=== PATIENT | male | born 1965 | race Two or more races ===

== ENCOUNTER 2022-01-11 10:08 | Inpatient (IN) | payer MEDICAID ==
[~2022-01-11] VITALS: Ht 162.6 cm; Wt 80.2 kg
[2022-01-11] VITALS (30 sets, daily range): BP systolic 144–196; BP diastolic 68–88
[2022-01-11] MEDS: InsuLIN REG 1unit/0.01ml Soln (100units/ml) SC SCH ×2 (01:15→17:00)
[~2022-01-11 10:08] MED LIST: AMLO-496 PO; ASPI-543 PO; ATOR20TA50 PO; CARV6.25 PO; CLON0.1T PO; ERGO1CAP23 PO; GABA300C10 PO; GLIP5TAB12 PO; POM EACHEYE; SILD50TA42 PO; TAMS0.4C36 PO
[2022-01-11 11:41] LABS: Basophils # (auto) 0 10 ^3/uL (0-0.2); Basophils % (auto) 0.5 % (0.0-2.0); Eosinophils # (auto) 0 10 ^3/uL (0-0.8); Eosinophils % (auto) 0.5 % (0.0-7.0); Hematocrit 33.2 % (41.0-53.0); Hemoglobin 10.6 g/dL (13.5-17.5); Lymphocytes % (auto) 18.5 % (10.0-50.0); Mean Corpuscular Hemoglobin 31.6 pg (28.0-32.0); Mean Corpuscular Volume 98.5 fL (80.0-100.0); Monocytes # (auto) 0.6 10 ^3/uL (0-1.3); Monocytes % (auto) 9.8 % (0.0-12.0); Neutrophils % (auto) 70.7 % (37.0-80.0); Nucleated Red Blood Cells % 0.1 %; Red Blood Cells 3.37 10^6/uL (4.5-5.90); Red Cell Distribution Width 14.2 % (11.8-14.3); White Blood Cell 5.6 10^3/uL (4.4-10.8)
[2022-01-11 11:45] LABS: BUN/Creatinine Ratio 25.4; Calcium 8.1 mg/dL (8.5-10.1); Potassium 5.1 mmol/L (3.5-5.1)
[2022-01-11] MEDS ORDERED: ONDANSETRON HCL 4 MG/2 ML VIAL IV ONE (11:45)
[2022-01-11] MEDS ORDERED: FLEET ENEMA(ADULT) 135 ML PR ONE (11:45)
[2022-01-11] MEDS ORDERED: MORPHINE SULFATE 4 MG/ML SYR/VIAL IV ONE (11:45)
[2022-01-11] MEDS ORDERED: FUROSEMIDE 40 MG/4 ML VIAL IV ONE (11:45)
[2022-01-11 11:48] LABS: Bilirubin, Total 0.3 mg/dL (0.2-1.0); Total Protein 6.5 g/dL (6.4-8.2)
[2022-01-11 11:57] LABS: INR 1.02 (0.9-1.15); Partial Thromboplastin Time 27.1 sec (23.6-33.0)
[2022-01-11] MEDS ORDERED: NITROGLYCERIN 0.4 MG SL TAB SL PRN (12:30)
[2022-01-11] MEDS ORDERED: traMADol HCL 50 MG TAB PO PRN (12:30)
[2022-01-11] MEDS ORDERED: PANTOPRAZOLE 40 MG TAB PO ONE (12:30)
[2022-01-11] MEDS ORDERED: DEXTROSE (50%) 50ML SYRG IV PRN (12:30)
[2022-01-11] MEDS ORDERED: MORPHINE SULFATE INJECTION 2 MG/ML SYRG IV PRN ×2 (12:30)
[2022-01-11] MEDS ORDERED: TEMAZEPAM 15 MG CAP PO PRN (12:30)
[2022-01-11] MEDS ORDERED: LACTULOSE 20Gm/30ML SOLN PO PRN (12:30)
[2022-01-11] MEDS ORDERED: PROMETHAZINE HCL 25 MG/ML 1ML IV PRN (12:30)
[2022-01-11] MEDS: SODIUM CHLOR 0.9% PF (SALINE LOCK) 10ML VIAL/SYR IV SCH ×2 (14:02→23:00)
[2022-01-11] MEDS ORDERED: ISOSORBIDE MONONITRATE ER 60 MG TAB PO ONE (14:45)
[2022-01-11] MEDS ORDERED: CARVEDILOL 3.125 MG TAB PO SCH ×2 (14:45→22:00)
[2022-01-11] MEDS: ACCU-CHEK COMFORT CURVE STRIP VI SCH (17:00)
[2022-01-11] MEDS ORDERED: ROCURONIUM 10MG/ML 10ML VIAL IV ONE ×2 (17:24→17:56)
[2022-01-11] MEDS ORDERED: MIDAZOLAM DRIP 50 mg/50mL 50 ML IV ONE (17:34)
[2022-01-11] MEDS ORDERED: fentaNYL Drip 2500mCg/250mlNS 250 ML IV ONE (17:44)
[2022-01-11] MEDS: FUROSEMIDE 100 MG/10ML VIAL IV SCH (18:00)
[2022-01-11] MEDS ORDERED: hydrALAZINE HCL 25 MG TAB PO SCH (18:00)
[2022-01-11] MEDS: TAMSULOSIN HYDROCHLORIDE 0.4 MG CAP PO SCH (18:00)
[2022-01-11 18:16] LABS: Basophils # (auto) 0.1 10 ^3/uL (0-0.2); Basophils % (auto) 0.6 % (0.0-2.0); Eosinophils # (auto) 0.1 10 ^3/uL (0-0.8); Eosinophils % (auto) 0.6 % (0.0-7.0); Hematocrit 33.3 % (41.0-53.0); Hemoglobin 10.8 g/dL (13.5-17.5); Lymphocytes # (auto) 1.3 10 ^3/uL (0.4-5.4); Lymphocytes % (auto) 14.9 % (10.0-50.0); Mean Corpuscular Hemoglobin 31.9 pg (28.0-32.0); Mean Corpuscular Hgb Conc. 32.5 g/dL (32.0-36.0); Mean Corpuscular Volume 98.1 fL (80.0-100.0); Monocytes # (auto) 0.7 10 ^3/uL (0-1.3); Monocytes % (auto) 7.8 % (0.0-12.0); Neutrophils # (auto) 6.4 10 ^3/uL (1.6-8.6); Neutrophils % (auto) 76.1 % (37.0-80.0); Nucleated Red Blood Cells % 0.1 %; Red Blood Cells 3.39 10^6/uL (4.5-5.90); Red Cell Distribution Width 13.9 % (11.8-14.3); White Blood Cell 8.4 10^3/uL (4.4-10.8)
[2022-01-11] MEDS ORDERED: SODIUM BICARBONATE 8.4% INJ 50ML SYRINGE IV ONE (18:22)
[2022-01-11] MEDS ORDERED: EPINEPHrine HCL 1 MG/10 ML SYRG IV ONE (18:22)
[2022-01-11 18:36] LABS: Albumin 2.8 g/dL (3.4-5.0); Calcium 7.9 mg/dL (8.5-10.1); Potassium 4.4 mmol/L (3.5-5.1)
[2022-01-11 18:38] LABS: BUN/Creatinine Ratio 26.1
[2022-01-11 18:49] LABS: Bilirubin, Total 0.3 mg/dL (0.2-1.0); Total Protein 6.2 g/dL (6.4-8.2)
[2022-01-11] MEDS ORDERED: VANCOMYCIN 1GM/250ML 250 ML IV ONE (19:15)
[2022-01-11] MEDS: CARVEDILOL 12.5 MG TAB PO SCH (22:00)
[2022-01-11] MEDS: GABAPENTIN 300 MG CAP PO SCH (22:00)
[2022-01-11] MEDS: ATORVASTATIN 20 MG TAB PO SCH (22:00)
[2022-01-12] VITALS (86 sets, daily range): BP systolic 106–154; BP diastolic 59–77
[2022-01-12] MEDS: ACCU-CHEK COMFORT CURVE STRIP VI SCH ×5 (01:15→22:00)
[2022-01-12 03:52] LABS: Basophils # (auto) 0 10 ^3/uL (0-0.2); Basophils % (auto) 0.5 % (0.0-2.0); Eosinophils # (auto) 0 10 ^3/uL (0-0.8); Eosinophils % (auto) 0.6 % (0.0-7.0); Hematocrit 28.7 % (41.0-53.0); Hemoglobin 9.9 g/dL (13.5-17.5); Lymphocytes # (auto) 0.8 10 ^3/uL (0.4-5.4); Lymphocytes % (auto) 20.3 % (10.0-50.0); Mean Corpuscular Hemoglobin 33.2 pg (28.0-32.0); Mean Corpuscular Hgb Conc. 34.6 g/dL (32.0-36.0); Mean Corpuscular Volume 95.9 fL (80.0-100.0); Monocytes # (auto) 0.4 10 ^3/uL (0-1.3); Monocytes % (auto) 11.2 % (0.0-12.0); Neutrophils # (auto) 2.5 10 ^3/uL (1.6-8.6); Neutrophils % (auto) 67.4 % (37.0-80.0); Nucleated Red Blood Cells % 0.1 %; Red Blood Cells 2.99 10^6/uL (4.5-5.90); Red Cell Distribution Width 13.8 % (11.8-14.3); White Blood Cell 3.7 10^3/uL (4.4-10.8)
[2022-01-12 04:11] LABS: Albumin 2.4 g/dL (3.4-5.0); Potassium 3.7 mmol/L (3.5-5.1)
[2022-01-12 04:13] LABS: BUN/Creatinine Ratio 28.1
[2022-01-12 04:19] LABS: Bilirubin, Total 0.4 mg/dL (0.2-1.0); Total Protein 5.3 g/dL (6.4-8.2)
[2022-01-12] MEDS: PIPERACILLIN-TAZOB 3.375GM 100 ML IV SCH ×4 (04:48→21:00)
[2022-01-12] MEDS: SODIUM CHLOR 0.9% PF (SALINE LOCK) 10ML VIAL/SYR IV SCH ×3 (06:00→22:00)
[2022-01-12] MEDS: hydrALAZINE HCL 25 MG TAB PO SCH ×3 (06:00→12:00)
[2022-01-12] MEDS: FUROSEMIDE 100 MG/10ML VIAL IV SCH (06:00)
[2022-01-12] MEDS: InsuLIN REG 1unit/0.01ml Soln (100units/ml) SC SCH ×4 (07:12→22:00)
[2022-01-12] MEDS: MIDAZOLAM DRIP 50 mg/50mL 50 ML IV SCH ×4 (07:19→19:00)
[2022-01-12] MEDS ORDERED: cefTRIAXone 1GM/50ML D5W 50 ML IV SCH (09:00)
[2022-01-12] MEDS: ASPirin-EC 81 mg tab PO SCH (09:34)
[2022-01-12] MEDS: CARVEDILOL 12.5 MG TAB PO SCH (09:34)
[2022-01-12] MEDS: glipiZIDE 5 MG TAB PO SCH (09:35)
[2022-01-12] MEDS: PANTOPRAZOLE 40 MG/10 ML VIAL INJ IV SCH (09:46)
[2022-01-12] MEDS: GABAPENTIN 300 MG CAP PO SCH ×2 (09:46→22:00)
[2022-01-12] MEDS: NITROGLYCERIN 0.2MG/HR TOPICAL PATCH TD SCH (09:47)
[2022-01-12] MEDS ORDERED: PATIENTS OWN MEDICATION EACHEYE SCH (10:00)
[2022-01-12] MEDS: NOREPINEPHRINE 8 MG/250ML KIT 250 ML IV SCH (10:00)
[2022-01-12] MEDS ORDERED: ENOXAPARIN SOD 40 MG/0.4 ML SYRINGE SC SCH (10:00)
[2022-01-12] MEDS ORDERED: PANTOPRAZOLE 40 MG TAB PO SCH (10:00)
[2022-01-12] MEDS ORDERED: amLODIPine BESYLATE 5 MG TAB PO SCH (10:00)
[2022-01-12] MEDS: fentaNYL Drip 2500mCg/250mlNS 250 ML IV SCH ×2 (11:23→19:30)
[2022-01-12] MEDS: PROPOFOL 100 ML IV SCH ×2 (11:47→19:30)
[2022-01-12] MEDS: SOD CHL 0.45% 1,000 ML IV SCH (11:56)
[2022-01-12] MEDS ORDERED: TPN PER PHARMACY 0 ML IV SCH (14:00)
[2022-01-12 14:14] LABS: Alcohol, Urine < 3.0 mg/dL (0-10); Barbiturate Scree,Urine NEGATIVE (NEGATIVE); Benzodiazephine Screen, Urine POSITIVE (NEGATIVE); Cocaine Screen, Urine NEGATIVE (NEGATIVE); Opiate Scree,Urine NEGATIVE (NEGATIVE); Phencyclidine Screen, Urine NEGATIVE (NEGATIVE)
[2022-01-12] MEDS: DOPamine 1600MCG/ML D5W 250 ML IV SCH (14:30)
[2022-01-12 14:45] LABS: Protein, Urine 197.3 mg/dL (0.0-11.9)
[2022-01-12 14:47] LABS: Magnesium 3.6 mg/dL (1.6-2.6)
[2022-01-12 15:05] LABS: Amphetamine Screen, Urine NEGATIVE (NEGATIVE); Cannabinoid Screen, Urine NEGATIVE (NEGATIVE)
[2022-01-12 15:15] LABS: Urine Bacteria FEW /hpf (None Seen); Urine Blood TRACE /uL (Negative); Urine Mucus FEW (None Seen); Urine Specific Gravity 1.009 (1.001-1.035); Urine WBC 1 /hpf (0 - 3)
[2022-01-12] MEDS ORDERED: VANCOMYCIN PER PHARMACY 0 MG IV SCH (15:30)
[2022-01-12] MEDS ORDERED: VANCOMYCIN 1GM/250ML 250 ML IV ONE (17:00)
[2022-01-12] MEDS: TAMSULOSIN HYDROCHLORIDE 0.4 MG CAP PO SCH (17:42)
[2022-01-12] MEDS ORDERED: AMINO ACID INFUSION IN D10W 1,000 ML IV NR (20:00)
[2022-01-12] MEDS: ATORVASTATIN 20 MG TAB PO SCH (22:00)
[2022-01-12] MEDS: ENOXAPARIN SOD 80 MG/0.8ML SYRINGE SC SCH (22:00)
[2022-01-13] VITALS (105 sets, daily range): BP systolic 90–133; BP diastolic 51–67
[2022-01-13] MEDS ORDERED: DEXTROSE (50%) 50ML SYRG IV SCH
[2022-01-13] MEDS: PIPERACILLIN-TAZOB 3.375GM 100 ML IV SCH ×3 (04:00→20:13)
[2022-01-13 04:11] LABS: Albumin 1.9 g/dL (3.4-5.0); BUN/Creatinine Ratio 22.4; Calcium 7.4 mg/dL (8.5-10.1); Potassium 3.4 mmol/L (3.5-5.1)
[2022-01-13 04:24] LABS: Bilirubin, Total 0.6 mg/dL (0.2-1.0); Phosphorus 4.1 mg/dL (2.5-4.90); Total Protein 4.6 g/dL (6.4-8.2)
[2022-01-13] MEDS: SODIUM CHLOR 0.9% PF (SALINE LOCK) 10ML VIAL/SYR IV SCH ×3 (06:00→21:20)
[2022-01-13] MEDS: InsuLIN REG 1unit/0.01ml Soln (100units/ml) SC SCH ×4 (06:00→18:00)
[2022-01-13] MEDS: ACCU-CHEK COMFORT CURVE STRIP VI SCH ×4 (06:00→18:06)
[2022-01-13] MEDS: MIDAZOLAM DRIP 50 mg/50mL 50 ML IV SCH ×2 (07:50→21:17)
[2022-01-13] MEDS: DOPamine 1600MCG/ML D5W 250 ML IV SCH (07:54)
[2022-01-13 08:49] LABS: Basophils # (auto) 0 10 ^3/uL (0-0.2); Basophils % (auto) 0.5 % (0.0-2.0); Eosinophils # (auto) 0.1 10 ^3/uL (0-0.8); Eosinophils % (auto) 2.4 % (0.0-7.0); Hematocrit 28.3 % (41.0-53.0); Hemoglobin 9.3 g/dL (13.5-17.5); Lymphocytes # (auto) 0.7 10 ^3/uL (0.4-5.4); Lymphocytes % (auto) 15.8 % (10.0-50.0); Mean Corpuscular Hemoglobin 31.7 pg (28.0-32.0); Mean Corpuscular Volume 96.1 fL (80.0-100.0); Monocytes # (auto) 0.5 10 ^3/uL (0-1.3); Monocytes % (auto) 11.7 % (0.0-12.0); Neutrophils # (auto) 3.2 10 ^3/uL (1.6-8.6); Neutrophils % (auto) 69.6 % (37.0-80.0); Nucleated Red Blood Cells % 0.1 %; Red Blood Cells 2.95 10^6/uL (4.5-5.90); Red Cell Distribution Width 14.3 % (11.8-14.3); White Blood Cell 4.6 10^3/uL (4.4-10.8)
[2022-01-13] MEDS: glipiZIDE 5 MG TAB PO SCH (10:00)
[2022-01-13] MEDS: NITROGLYCERIN 0.2MG/HR TOPICAL PATCH TD SCH (10:00)
[2022-01-13] MEDS: NOREPINEPHRINE 8 MG/250ML KIT 250 ML IV SCH (10:00)
[2022-01-13] MEDS: GABAPENTIN 300 MG CAP PO SCH ×2 (10:00→21:20)
[2022-01-13] MEDS: ASPirin-EC 81 mg tab PO SCH (10:00)
[2022-01-13] MEDS: PANTOPRAZOLE 40 MG/10 ML VIAL INJ IV SCH (10:38)
[2022-01-13] MEDS: ENOXAPARIN SOD 80 MG/0.8ML SYRINGE SC SCH ×2 (10:39→21:21)
[2022-01-13] MEDS: SOD CHL 0.45% 1,000 ML IV SCH ×3 (11:00→17:15)
[2022-01-13] MEDS: POTASSIUM CHL 10MEQ/50ML 50 ML IV SCH ×2 (12:30→13:30)
[2022-01-13] MEDS ORDERED: VANCOMYCIN 1GM/250ML 250 ML IV SCH (17:00)
[2022-01-13] MEDS: TAMSULOSIN HYDROCHLORIDE 0.4 MG CAP PO SCH (17:54)
[2022-01-13] MEDS ORDERED: TPN PER PHARMACY IV NR ×5 (20:00)
[2022-01-13] MEDS: ATORVASTATIN 20 MG TAB PO SCH (21:19)
[2022-01-14] VITALS (107 sets, daily range): BP systolic 106–170; BP diastolic 51–92
[2022-01-14] MEDS: InsuLIN REG 1unit/0.01ml Soln (100units/ml) SC SCH ×5 (00:30→23:34)
[2022-01-14 03:42] LABS: Basophils # (auto) 0 10 ^3/uL (0-0.2); Basophils % (auto) 0.5 % (0.0-2.0); Eosinophils # (auto) 0.2 10 ^3/uL (0-0.8); Eosinophils % (auto) 2.8 % (0.0-7.0); Hematocrit 27.7 % (41.0-53.0); Hemoglobin 9.4 g/dL (13.5-17.5); Lymphocytes # (auto) 1.2 10 ^3/uL (0.4-5.4); Lymphocytes % (auto) 17.6 % (10.0-50.0); Mean Corpuscular Hemoglobin 32.5 pg (28.0-32.0); Mean Corpuscular Volume 95.7 fL (80.0-100.0); Monocytes # (auto) 0.9 10 ^3/uL (0-1.3); Monocytes % (auto) 12.9 % (0.0-12.0); Neutrophils # (auto) 4.6 10 ^3/uL (1.6-8.6); Neutrophils % (auto) 66.2 % (37.0-80.0); Nucleated Red Blood Cells % 0.1 %; White Blood Cell 6.9 10^3/uL (4.4-10.8)
[2022-01-14 03:59] LABS: Albumin 1.6 g/dL (3.4-5.0); Calcium 7.3 mg/dL (8.5-10.1); Magnesium 2.7 mg/dL (1.6-2.6)
[2022-01-14 04:01] LABS: BUN/Creatinine Ratio 17.7
[2022-01-14 04:03] LABS: Bilirubin, Total 0.5 mg/dL (0.2-1.0); Phosphorus 5.4 mg/dL (2.5-4.90); Total Protein 4.7 g/dL (6.4-8.2)
[2022-01-14] MEDS: fentaNYL Drip 2500mCg/250mlNS 250 ML IV SCH ×2 (04:34→19:30)
[2022-01-14] MEDS: PIPERACILLIN-TAZOB 3.375GM 100 ML IV SCH ×3 (06:15→21:18)
[2022-01-14] MEDS: ACCU-CHEK COMFORT CURVE STRIP VI SCH ×5 (06:16→23:32)
[2022-01-14] MEDS: SODIUM CHLOR 0.9% PF (SALINE LOCK) 10ML VIAL/SYR IV SCH ×3 (06:16→21:17)
[2022-01-14] MEDS: SOD CHL 0.45% 1,000 ML IV SCH (06:16)
[2022-01-14] MEDS: DOPamine 1600MCG/ML D5W 250 ML IV SCH (09:06)
[2022-01-14] MEDS: PROPOFOL 100 ML IV SCH (09:06)
[2022-01-14] MEDS: ENOXAPARIN SOD 80 MG/0.8ML SYRINGE SC SCH ×2 (09:07→21:17)
[2022-01-14] MEDS: GABAPENTIN 300 MG CAP PO SCH ×2 (09:07→21:17)
[2022-01-14] MEDS: PANTOPRAZOLE 40 MG/10 ML VIAL INJ IV SCH (09:07)
[2022-01-14] MEDS: ASPirin-EC 81 mg tab PO SCH (09:07)
[2022-01-14] MEDS: NOREPINEPHRINE 8 MG/250ML KIT 250 ML IV SCH (09:07)
[2022-01-14] MEDS: glipiZIDE 5 MG TAB PO SCH (09:07)
[2022-01-14] MEDS: NITROGLYCERIN 0.2MG/HR TOPICAL PATCH TD SCH (09:08)
[2022-01-14] MEDS: BUMETANIDE 2.5mg/10ml (0.25 mg/ml) INJ IV SCH ×2 (12:30→18:06)
[2022-01-14] MEDS: TAMSULOSIN HYDROCHLORIDE 0.4 MG CAP PO SCH (18:05)
[2022-01-14] MEDS: TPN PER PHARMACY IV NR ×6 (19:23)
[2022-01-14] MEDS: MIDAZOLAM DRIP 50 mg/50mL 50 ML IV SCH (19:30)
[2022-01-14] MEDS: ATORVASTATIN 20 MG TAB PO SCH (21:16)
[2022-01-15] VITALS (88 sets, daily range): BP systolic 121–186; BP diastolic 48–102
[2022-01-15] MEDS ORDERED: VANCOMYCIN 1GM/250ML 250 ML IV ONE (00:30)
[2022-01-15] MEDS: PIPERACILLIN-TAZOB 3.375GM 100 ML IV SCH ×3 (04:14→20:09)
[2022-01-15 04:47] LABS: Albumin 1.7 g/dL (3.4-5.0); Calcium 7.9 mg/dL (8.5-10.1); Magnesium 2.4 mg/dL (1.6-2.6); Potassium 3.8 mmol/L (3.5-5.1)
[2022-01-15 04:49] LABS: Bilirubin, Total 0.5 mg/dL (0.2-1.0); Phosphorus 4.8 mg/dL (2.5-4.90); Total Protein 5.1 g/dL (6.4-8.2)
[2022-01-15] MEDS: ACCU-CHEK COMFORT CURVE STRIP VI SCH ×3 (05:52→18:06)
[2022-01-15] MEDS: BUMETANIDE 2.5mg/10ml (0.25 mg/ml) INJ IV SCH (05:54)
[2022-01-15] MEDS: SODIUM CHLOR 0.9% PF (SALINE LOCK) 10ML VIAL/SYR IV SCH ×3 (05:54→21:07)
[2022-01-15] MEDS: InsuLIN REG 1unit/0.01ml Soln (100units/ml) SC SCH ×3 (05:54→18:06)
[2022-01-15] MEDS: cloNIDine HCL 0.1 MG TAB PO PRN (08:27)
[2022-01-15] MEDS: NOREPINEPHRINE 8 MG/250ML KIT 250 ML IV SCH (10:00)
[2022-01-15] MEDS: PANTOPRAZOLE 40 MG/10 ML VIAL INJ IV SCH (10:04)
[2022-01-15] MEDS: GABAPENTIN 300 MG CAP PO SCH ×2 (10:05→21:08)
[2022-01-15] MEDS: NITROGLYCERIN 0.2MG/HR TOPICAL PATCH TD SCH (10:05)
[2022-01-15] MEDS: ASPirin-EC 81 mg tab PO SCH (10:05)
[2022-01-15] MEDS: glipiZIDE 5 MG TAB PO SCH (10:06)
[2022-01-15] MEDS: ENOXAPARIN SOD 80 MG/0.8ML SYRINGE SC SCH ×2 (10:06→21:24)
[2022-01-15] MEDS ORDERED: hydrALAZINE HCL 20 MG/ML VL IV ONE (11:15)
[2022-01-15] MEDS: DOPamine 1600MCG/ML D5W 250 ML IV SCH (12:06)
[2022-01-15] MEDS: hydrALAZINE HCL 25 MG TAB PO SCH ×2 (14:00→21:07)
[2022-01-15] MEDS: hydrALAZINE HCL 20 MG/ML VL IV PRN (14:41)
[2022-01-15] MEDS: BUMETANIDE 1mg/4ml VIAL (0.25mg/ml) IV SCH (18:00)
[2022-01-15] MEDS: TAMSULOSIN HYDROCHLORIDE 0.4 MG CAP PO SCH (18:00)
[2022-01-15] MEDS: LABETALOL HCL 5 MG/ML 4ML SYRINGE IV PRN (18:48)
[2022-01-15] MEDS: PROPOFOL 100 ML IV SCH (19:30)
[2022-01-15] MEDS: TPN PER PHARMACY IV NR ×15 (19:43→20:10)
[2022-01-15] MEDS: fentaNYL Drip 2500mCg/250mlNS 250 ML IV SCH (20:10)
[2022-01-15] MEDS: MIDAZOLAM DRIP 50 mg/50mL 50 ML IV SCH (20:10)
[2022-01-15] MEDS: ATORVASTATIN 20 MG TAB PO SCH (21:08)
[2022-01-16] VITALS (69 sets, daily range): BP systolic 121–186; BP diastolic 56–91
[2022-01-16] MEDS: hydrALAZINE HCL 20 MG/ML VL IV PRN ×2 (00:07→08:10)
[2022-01-16] MEDS: ACCU-CHEK COMFORT CURVE STRIP VI SCH ×4 (00:07→17:11)
[2022-01-16] MEDS: InsuLIN REG 1unit/0.01ml Soln (100units/ml) SC SCH ×4 (00:13→17:10)
[2022-01-16] MEDS: PIPERACILLIN-TAZOB 3.375GM 100 ML IV SCH ×3 (03:33→20:23)
[2022-01-16] MEDS: DOPamine 1600MCG/ML D5W 250 ML IV SCH (03:42)
[2022-01-16 03:47] LABS: Basophils # (auto) 0 10 ^3/uL (0-0.2); Basophils % (auto) 0.4 % (0.0-2.0); Eosinophils # (auto) 0.2 10 ^3/uL (0-0.8); Eosinophils % (auto) 2.1 % (0.0-7.0); Hematocrit 31.6 % (41.0-53.0); Hemoglobin 10.4 g/dL (13.5-17.5); Lymphocytes # (auto) 1.1 10 ^3/uL (0.4-5.4); Lymphocytes % (auto) 13.9 % (10.0-50.0); Mean Corpuscular Hemoglobin 31.5 pg (28.0-32.0); Mean Corpuscular Volume 95.5 fL (80.0-100.0); Monocytes % (auto) 12.6 % (0.0-12.0); Neutrophils # (auto) 5.6 10 ^3/uL (1.6-8.6); Nucleated Red Blood Cells % 0.1 %; Red Blood Cells 3.31 10^6/uL (4.5-5.90); Red Cell Distribution Width 13.6 % (11.8-14.3); White Blood Cell 7.8 10^3/uL (4.4-10.8)
[2022-01-16] MEDS: LABETALOL HCL 5 MG/ML 4ML SYRINGE IV PRN (03:59)
[2022-01-16 04:05] LABS: Albumin 1.9 g/dL (3.4-5.0); BUN/Creatinine Ratio 14.8; Magnesium 2.4 mg/dL (1.6-2.6); Potassium 3.5 mmol/L (3.5-5.1)
[2022-01-16 04:08] LABS: Bilirubin, Total 0.4 mg/dL (0.2-1.0); Phosphorus 3.2 mg/dL (2.5-4.90)
[2022-01-16] MEDS: SODIUM CHLOR 0.9% PF (SALINE LOCK) 10ML VIAL/SYR IV SCH ×3 (05:56→22:12)
[2022-01-16] MEDS: hydrALAZINE HCL 25 MG TAB PO SCH ×3 (05:56→22:13)
[2022-01-16] MEDS: BUMETANIDE 1mg/4ml VIAL (0.25mg/ml) IV SCH ×2 (05:56→17:34)
[2022-01-16] MEDS: PANTOPRAZOLE 40 MG/10 ML VIAL INJ IV SCH (09:09)
[2022-01-16] MEDS: ASPirin-EC 81 mg tab PO SCH (09:19)
[2022-01-16] MEDS: ENOXAPARIN SOD 80 MG/0.8ML SYRINGE SC SCH (09:20)
[2022-01-16] MEDS: GABAPENTIN 300 MG CAP PO SCH ×2 (09:20→22:15)
[2022-01-16] MEDS: METOPROLOL TARTRATE 25 MG TAB PO SCH ×2 (09:20→22:14)
[2022-01-16] MEDS: NITROGLYCERIN 0.2MG/HR TOPICAL PATCH TD SCH (09:24)
[2022-01-16] MEDS: glipiZIDE 5 MG TAB PO SCH (10:00)
[2022-01-16] MEDS ORDERED: POTASSIUM CHL 10MEQ/50ML 50 ML IV ONE (11:00)
[2022-01-16] MEDS: POTASSIUM CHL 20 Meq TABLET PO SCH ×2 (11:01→22:14)
[2022-01-16] MEDS ORDERED: VANCOMYCIN 1GM/250ML 250 ML IV ONE (16:00)
[2022-01-16] MEDS: TAMSULOSIN HYDROCHLORIDE 0.4 MG CAP PO SCH (17:34)
[2022-01-16] MEDS: TPN PER PHARMACY IV NR ×9 (19:50)
[2022-01-16] MEDS ORDERED: TPN PER PHARMACY IV NR ×9 (20:00)
[2022-01-16] MEDS: ATORVASTATIN 20 MG TAB PO SCH (22:15)
[2022-01-17] MEDS: ACCU-CHEK COMFORT CURVE STRIP VI SCH ×3 (00:16→22:17)
[2022-01-17] MEDS: InsuLIN REG 1unit/0.01ml Soln (100units/ml) SC SCH ×3 (00:17→22:13)
[2022-01-17] MEDS: PIPERACILLIN-TAZOB 3.375GM 100 ML IV SCH ×3 (05:35→20:21)
[2022-01-17 06:04] LABS: Basophils # (auto) 0 10 ^3/uL (0-0.2); Basophils % (auto) 0.5 % (0.0-2.0); Eosinophils # (auto) 0.2 10 ^3/uL (0-0.8); Eosinophils % (auto) 4.1 % (0.0-7.0); Hematocrit 29.4 % (41.0-53.0); Hemoglobin 9.9 g/dL (13.5-17.5); Lymphocytes # (auto) 0.9 10 ^3/uL (0.4-5.4); Lymphocytes % (auto) 17.3 % (10.0-50.0); Mean Corpuscular Hemoglobin 31.9 pg (28.0-32.0); Mean Corpuscular Hgb Conc. 33.7 g/dL (32.0-36.0); Mean Corpuscular Volume 94.6 fL (80.0-100.0); Monocytes # (auto) 0.7 10 ^3/uL (0-1.3); Monocytes % (auto) 13.3 % (0.0-12.0); Neutrophils # (auto) 3.4 10 ^3/uL (1.6-8.6); Neutrophils % (auto) 64.8 % (37.0-80.0); Nucleated Red Blood Cells % 0.1 %; Red Blood Cells 3.11 10^6/uL (4.5-5.90); Red Cell Distribution Width 13.6 % (11.8-14.3); White Blood Cell 5.2 10^3/uL (4.4-10.8)
[2022-01-17 06:08] LABS: Calcium 8.3 mg/dL (8.5-10.1); Magnesium 2.2 mg/dL (1.6-2.6); Potassium 3.6 mmol/L (3.5-5.1)
[2022-01-17] MEDS: BUMETANIDE 1mg/4ml VIAL (0.25mg/ml) IV SCH ×2 (06:10→18:19)
[2022-01-17] MEDS: SODIUM CHLOR 0.9% PF (SALINE LOCK) 10ML VIAL/SYR IV SCH ×3 (06:11→22:30)
[2022-01-17] MEDS: hydrALAZINE HCL 25 MG TAB PO SCH ×3 (06:11→22:31)
[2022-01-17 06:14] LABS: BUN/Creatinine Ratio 13.8; Bilirubin, Total 0.4 mg/dL (0.2-1.0); Pre Albumin 12.5 mg/dL (20.0-40.0); Total Protein 5.8 g/dL (6.4-8.2)
[2022-01-17] MEDS: PANTOPRAZOLE 40 MG/10 ML VIAL INJ IV SCH (08:42)
[2022-01-17] MEDS: ASPirin-EC 81 mg tab PO SCH (08:43)
[2022-01-17] MEDS: METOPROLOL TARTRATE 25 MG TAB PO SCH ×2 (08:48→22:33)
[2022-01-17] MEDS: glipiZIDE 5 MG TAB PO SCH (08:48)
[2022-01-17] MEDS: POTASSIUM CHL 20 Meq TABLET PO SCH ×2 (08:48→22:31)
[2022-01-17] MEDS: GABAPENTIN 300 MG CAP PO SCH ×2 (08:49→22:33)
[2022-01-17] MEDS: ENOXAPARIN SOD 80 MG/0.8ML SYRINGE SC SCH (08:49)
[2022-01-17] MEDS: NITROGLYCERIN 0.2MG/HR TOPICAL PATCH TD SCH (08:50)
[2022-01-17 09:00] VITALS: BP 146/72
[2022-01-17 13:06] VITALS: BP 117/66
[2022-01-17 17:00] VITALS: BP 135/68
[2022-01-17] MEDS: TAMSULOSIN HYDROCHLORIDE 0.4 MG CAP PO SCH (18:20)
[2022-01-17] MEDS ORDERED: DEXTROSE (50%) 50ML SYRG IV PRN (19:30)
[2022-01-17 21:50] VITALS: BP 165/77
[2022-01-17] MEDS: ATORVASTATIN 20 MG TAB PO SCH (22:32)
[2022-01-17] MEDS: ACETYLCYSTEINE ORAL for CIN 20%(200MG/ML) 4ML PO SCH (22:33)
[2022-01-18] MEDS: PIPERACILLIN-TAZOB 3.375GM 100 ML IV SCH ×3 (03:40→20:44)
[2022-01-18 04:54] VITALS: BP 112/54
[2022-01-18] MEDS: hydrALAZINE HCL 25 MG TAB PO SCH ×3 (06:05→20:44)
[2022-01-18] MEDS: BUMETANIDE 1mg/4ml VIAL (0.25mg/ml) IV SCH ×2 (06:05→18:05)
[2022-01-18] MEDS: SODIUM CHLOR 0.9% PF (SALINE LOCK) 10ML VIAL/SYR IV SCH ×3 (06:05→20:46)
[2022-01-18 06:10] LABS: Basophils # (auto) 0 10 ^3/uL (0-0.2); Basophils % (auto) 0.8 % (0.0-2.0); Eosinophils # (auto) 0.3 10 ^3/uL (0-0.8); Eosinophils % (auto) 5.7 % (0.0-7.0); Hematocrit 28.3 % (41.0-53.0); Hemoglobin 9.4 g/dL (13.5-17.5); Lymphocytes # (auto) 1.5 10 ^3/uL (0.4-5.4); Lymphocytes % (auto) 28.5 % (10.0-50.0); Mean Corpuscular Hemoglobin 31.7 pg (28.0-32.0); Mean Corpuscular Hgb Conc. 33.1 g/dL (32.0-36.0); Mean Corpuscular Volume 95.7 fL (80.0-100.0); Monocytes # (auto) 0.7 10 ^3/uL (0-1.3); Monocytes % (auto) 14.2 % (0.0-12.0); Neutrophils # (auto) 2.7 10 ^3/uL (1.6-8.6); Neutrophils % (auto) 50.8 % (37.0-80.0); Nucleated Red Blood Cells % 0.1 %; Red Blood Cells 2.95 10^6/uL (4.5-5.90); Red Cell Distribution Width 13.8 % (11.8-14.3); White Blood Cell 5.2 10^3/uL (4.4-10.8)
[2022-01-18 06:20] LABS: Calcium 8.3 mg/dL (8.5-10.1); Magnesium 2.2 mg/dL (1.6-2.6); Potassium 4.3 mmol/L (3.5-5.1)
[2022-01-18 06:23] LABS: BUN/Creatinine Ratio 12.5
[2022-01-18 06:25] LABS: Bilirubin, Total 0.4 mg/dL (0.2-1.0); Phosphorus 3.9 mg/dL (2.5-4.90); Total Protein 5.6 g/dL (6.4-8.2)
[2022-01-18] MEDS: ACCU-CHEK COMFORT CURVE STRIP VI SCH ×4 (06:31→20:46)
[2022-01-18] MEDS: InsuLIN REG 1unit/0.01ml Soln (100units/ml) SC SCH ×4 (06:32→20:52)
[2022-01-18] MEDS: ASPirin-EC 81 mg tab PO SCH (08:44)
[2022-01-18] MEDS: glipiZIDE 5 MG TAB PO SCH (08:49)
[2022-01-18] MEDS: ENOXAPARIN SOD 80 MG/0.8ML SYRINGE SC SCH (08:52)
[2022-01-18] MEDS: NITROGLYCERIN 0.2MG/HR TOPICAL PATCH TD SCH (08:52)
[2022-01-18] MEDS: METOPROLOL TARTRATE 25 MG TAB PO SCH ×2 (08:53→20:44)
[2022-01-18] MEDS: GABAPENTIN 300 MG CAP PO SCH ×2 (08:53→20:46)
[2022-01-18] MEDS: POTASSIUM CHL 20 Meq TABLET PO SCH ×2 (08:54→20:45)
[2022-01-18] MEDS: PANTOPRAZOLE 40 MG/10 ML VIAL INJ IV SCH (08:54)
[2022-01-18 09:00] VITALS: BP 156/75
[2022-01-18] MEDS ORDERED: VANCOMYCIN 1GM/250ML 250 ML IV ONE (10:00)
[2022-01-18] MEDS: ACETYLCYSTEINE ORAL for CIN 20%(200MG/ML) 4ML PO SCH ×2 (13:39→20:46)
[2022-01-18] MEDS: TAMSULOSIN HYDROCHLORIDE 0.4 MG CAP PO SCH (18:38)
[2022-01-18 20:13] VITALS: BP 164/86
[2022-01-18] MEDS: ATORVASTATIN 20 MG TAB PO SCH (20:45)
[2022-01-19] MEDS: PIPERACILLIN-TAZOB 3.375GM 100 ML IV SCH (04:06)
[2022-01-19 05:00] VITALS: BP 138/62
[2022-01-19] MEDS: ACCU-CHEK COMFORT CURVE STRIP VI SCH ×4 (05:29→22:35)
[2022-01-19] MEDS: SODIUM CHLOR 0.9% PF (SALINE LOCK) 10ML VIAL/SYR IV SCH ×3 (05:29→22:36)
[2022-01-19] MEDS: InsuLIN REG 1unit/0.01ml Soln (100units/ml) SC SCH ×4 (05:43→22:35)
[2022-01-19] MEDS: hydrALAZINE HCL 25 MG TAB PO SCH ×3 (05:45→22:31)
[2022-01-19] MEDS: BUMETANIDE 1mg/4ml VIAL (0.25mg/ml) IV SCH (05:46)
[2022-01-19 06:09] LABS: Potassium 4.9 mmol/L (3.5-5.1)
[2022-01-19 06:15] LABS: Albumin 2.2 g/dL (3.4-5.0); Calcium 8.9 mg/dL (8.5-10.1); Magnesium 2.7 mg/dL (1.6-2.6)
[2022-01-19 06:19] LABS: Bilirubin, Total 0.2 mg/dL (0.2-1.0); Phosphorus 4.7 mg/dL (2.5-4.90)
[2022-01-19] MEDS ORDERED: ALBUMIN 25% 100 ML IV ONE (08:45)
[2022-01-19 08:58] VITALS: BP 109/57
[2022-01-19] MEDS: SODIUM CHLORIDE 0.9% 1,000 ML IV SCH ×2 (09:45→23:05)
[2022-01-19 09:55] LABS: Basophils # (auto) 0 10 ^3/uL (0-0.2); Basophils % (auto) 0.9 % (0.0-2.0); Eosinophils # (auto) 0.2 10 ^3/uL (0-0.8); Eosinophils % (auto) 4.4 % (0.0-7.0); Hematocrit 29.1 % (41.0-53.0); Hemoglobin 9.7 g/dL (13.5-17.5); Lymphocytes % (auto) 20.6 % (10.0-50.0); Mean Corpuscular Hemoglobin 31.4 pg (28.0-32.0); Mean Corpuscular Hgb Conc. 33.2 g/dL (32.0-36.0); Mean Corpuscular Volume 94.8 fL (80.0-100.0); Monocytes # (auto) 0.5 10 ^3/uL (0-1.3); Monocytes % (auto) 10.6 % (0.0-12.0); Neutrophils # (auto) 3.2 10 ^3/uL (1.6-8.6); Neutrophils % (auto) 63.5 % (37.0-80.0); Nucleated Red Blood Cells % 0.1 %; Red Blood Cells 3.07 10^6/uL (4.5-5.90); Red Cell Distribution Width 13.5 % (11.8-14.3); White Blood Cell 5.1 10^3/uL (4.4-10.8)
[2022-01-19] MEDS: POTASSIUM CHL 20 Meq TABLET PO SCH ×2 (10:00→22:00)
[2022-01-19] MEDS: ACETYLCYSTEINE ORAL for CIN 20%(200MG/ML) 4ML PO SCH ×2 (10:00→22:34)
[2022-01-19] MEDS: glipiZIDE 5 MG TAB PO SCH (10:00)
[2022-01-19] MEDS: ASPirin-EC 81 mg tab PO SCH (10:00)
[2022-01-19] MEDS: PANTOPRAZOLE 40 MG/10 ML VIAL INJ IV SCH (10:00)
[2022-01-19] MEDS ORDERED: ACETYLCYSTEINE ORAL for CIN 20%(200MG/ML) 4ML PO SCH (10:00)
[2022-01-19] MEDS: METOPROLOL TARTRATE 25 MG TAB PO SCH ×2 (10:00→22:00)
[2022-01-19] MEDS: NITROGLYCERIN 0.2MG/HR TOPICAL PATCH TD SCH (10:00)
[2022-01-19] MEDS ORDERED: HEPARIN IN NS 1000Units/500mL 1,500 ML ONE (10:01)
[2022-01-19] MEDS ORDERED: IODIXANOL 320MG/ML 100ML BTL IV ONE ×2 (10:01→11:18)
[2022-01-19] MEDS ORDERED: ANGIOMAX 250 MG VIAL IV ONE (10:06)
[2022-01-19] MEDS ORDERED: VERAPAMIL 2.5MG/ML INJ 2ML VIAL IV ONE (10:06)
[2022-01-19] MEDS ORDERED: fentaNYL CITRATE 100 MCG/2 ML VL ONE (10:06)
[2022-01-19] MEDS ORDERED: HEPARIN SODIUM (PORCINE) 5000 UNITS/ML 1ML VIAL ONE (10:06)
[2022-01-19] MEDS ORDERED: SODIUM CHL 0.9% 0 ML ONE (10:07)
[2022-01-19] MEDS ORDERED: MIDAZOLAM HCL 2MG/2ML 2ml VIAL (1mg/ml) ONE (10:07)
[2022-01-19] MEDS ORDERED: SODIUM CHL 0.9% 50 ML ONE (10:10)
[2022-01-19] MEDS ORDERED: LIDOCAINE 2%HCL (LOCAL ANESTH.) INJ 10ml MDV ONE (10:44)
[2022-01-19 10:54] LABS: INR 1.05 (0.9-1.15); Partial Thromboplastin Time 26.7 sec (23.6-33.0)
[2022-01-19 12:45] VITALS: BP 116/71
[2022-01-19 13:00] VITALS: BP 126/75
[2022-01-19 13:29] LABS: Hepatitis B Surface Antibody Negative (Negative)
[2022-01-19 13:52] LABS: Hepatitis A Total Antibody Positive (Negative)
[2022-01-19 15:04] LABS: Hepatitis C Antibody Negative (Negative)
[2022-01-19] MEDS: GABAPENTIN 300 MG CAP PO SCH (18:29)
[2022-01-19] MEDS: TAMSULOSIN HYDROCHLORIDE 0.4 MG CAP PO SCH (18:30)
[2022-01-19 22:00] VITALS: BP 158/85
[2022-01-19] MEDS: ATORVASTATIN 20 MG TAB PO SCH (22:33)
[2022-01-20 05:00] VITALS: BP 149/79
[2022-01-20] MEDS: hydrALAZINE HCL 25 MG TAB PO SCH ×3 (06:25→20:52)
[2022-01-20] MEDS: ACCU-CHEK COMFORT CURVE STRIP VI SCH ×4 (06:25→21:15)
[2022-01-20] MEDS: SODIUM CHLOR 0.9% PF (SALINE LOCK) 10ML VIAL/SYR IV SCH ×3 (06:25→21:16)
[2022-01-20 06:37] LABS: Calcium 8.6 mg/dL (8.5-10.1); Potassium 5.1 mmol/L (3.5-5.1)
[2022-01-20] MEDS: InsuLIN REG 1unit/0.01ml Soln (100units/ml) SC SCH ×4 (06:38→21:16)
[2022-01-20 06:39] LABS: BUN/Creatinine Ratio 11.6
[2022-01-20] MEDS ORDERED: FUROSEMIDE 40 MG/4 ML VIAL IV ONE (09:15)
[2022-01-20 09:26] VITALS: BP 165/86
[2022-01-20] MEDS: PANTOPRAZOLE 40 MG/10 ML VIAL INJ IV SCH (10:19)
[2022-01-20] MEDS: glipiZIDE 5 MG TAB PO SCH (10:19)
[2022-01-20] MEDS: ASPirin-EC 81 mg tab PO SCH (10:19)
[2022-01-20] MEDS: METOPROLOL TARTRATE 25 MG TAB PO SCH ×2 (10:20→20:52)
[2022-01-20] MEDS: NITROGLYCERIN 0.2MG/HR TOPICAL PATCH TD SCH (10:21)
[2022-01-20] MEDS ORDERED: HYDR25TA87 PO (11:44)
[2022-01-20] MEDS: ACETYLCYSTEINE ORAL for CIN 20%(200MG/ML) 4ML PO SCH (11:48)
[2022-01-20] MEDS: SODIUM CHLORIDE 0.9% 1,000 ML IV SCH (12:25)
[2022-01-20 13:13] VITALS: BP 156/87
[2022-01-20 15:53] VITALS: BP 143/71
[2022-01-20] MEDS: GABAPENTIN 300 MG CAP PO SCH (17:52)
[2022-01-20] MEDS: TAMSULOSIN HYDROCHLORIDE 0.4 MG CAP PO SCH (17:52)
[2022-01-20] MEDS: ATORVASTATIN 20 MG TAB PO SCH (20:51)
[2022-01-20 22:00] VITALS: BP 110/62
[2022-01-21] VITALS (12 sets, daily range): BP systolic 131–188; BP diastolic 50–94
[2022-01-21] MEDS: SODIUM CHLORIDE 0.9% 1,000 ML IV SCH (01:45)
[2022-01-21] MEDS: SODIUM CHLOR 0.9% PF (SALINE LOCK) 10ML VIAL/SYR IV SCH ×3 (05:53→19:38)
[2022-01-21] MEDS: hydrALAZINE HCL 25 MG TAB PO SCH ×3 (05:54→21:26)
[2022-01-21] MEDS: ACCU-CHEK COMFORT CURVE STRIP VI SCH ×4 (06:20→21:42)
[2022-01-21] MEDS: InsuLIN REG 1unit/0.01ml Soln (100units/ml) SC SCH ×4 (06:21→21:42)
[2022-01-21 06:26] LABS: Basophils # (auto) 0.1 10 ^3/uL (0-0.2); Basophils % (auto) 1.1 % (0.0-2.0); Eosinophils # (auto) 0.2 10 ^3/uL (0-0.8); Eosinophils % (auto) 3.5 % (0.0-7.0); Hematocrit 25.3 % (41.0-53.0); Hemoglobin 8.4 g/dL (13.5-17.5); Lymphocytes # (auto) 1.8 10 ^3/uL (0.4-5.4); Lymphocytes % (auto) 27.3 % (10.0-50.0); Mean Corpuscular Hemoglobin 31.2 pg (28.0-32.0); Mean Corpuscular Hgb Conc. 33.3 g/dL (32.0-36.0); Mean Corpuscular Volume 93.8 fL (80.0-100.0); Monocytes # (auto) 0.6 10 ^3/uL (0-1.3); Neutrophils # (auto) 3.9 10 ^3/uL (1.6-8.6); Neutrophils % (auto) 59.1 % (37.0-80.0); Nucleated Red Blood Cells % 0.1 %; Red Cell Distribution Width 13.9 % (11.8-14.3); White Blood Cell 6.6 10^3/uL (4.4-10.8)
[2022-01-21 06:44] LABS: BUN/Creatinine Ratio 14.1; Calcium 8.4 mg/dL (8.5-10.1); Potassium 4.7 mmol/L (3.5-5.1)
[2022-01-21] MEDS: METOPROLOL TARTRATE 25 MG TAB PO SCH ×2 (09:13→21:27)
[2022-01-21] MEDS: PANTOPRAZOLE 40 MG/10 ML VIAL INJ IV SCH (09:15)
[2022-01-21] MEDS: ASPirin-EC 81 mg tab PO SCH (09:15)
[2022-01-21] MEDS: NITROGLYCERIN 0.2MG/HR TOPICAL PATCH TD SCH (09:16)
[2022-01-21] MEDS: glipiZIDE 5 MG TAB PO SCH (09:16)
[2022-01-21] MEDS ORDERED: SUCCINYLCHOLINE CHLORIDE 20 MG/ML 10ML VIAL IV ONE (14:13)
[2022-01-21] MEDS ORDERED: ETOMIDATE (2MG/ML) 20ML VIAL IV ONE (14:13)
[2022-01-21] MEDS ORDERED: MIDAZOLAM DRIP 50 mg/50mL 50 ML IV ONE (14:16)
[2022-01-21] MEDS: LABETALOL HCL 5 MG/ML 4ML SYRINGE IV PRN ×2 (15:41→22:33)
[2022-01-21] MEDS: TAMSULOSIN HYDROCHLORIDE 0.4 MG CAP PO SCH (18:03)
[2022-01-21] MEDS: GABAPENTIN 300 MG CAP PO SCH (18:03)
[2022-01-21] MEDS: ATORVASTATIN 20 MG TAB PO SCH (21:27)
[2022-01-22] VITALS (23 sets, daily range): BP systolic 111–186; BP diastolic 48–95
[2022-01-22] MEDS: cloNIDine HCL 0.1 MG TAB PO PRN ×2 (00:14→23:46)
[2022-01-22] MEDS: hydrALAZINE HCL 25 MG TAB PO SCH ×3 (05:41→21:13)
[2022-01-22] MEDS: SODIUM CHLOR 0.9% PF (SALINE LOCK) 10ML VIAL/SYR IV SCH ×3 (05:41→21:48)
[2022-01-22 05:59] LABS: Basophils # (auto) 0 10 ^3/uL (0-0.2); Basophils % (auto) 0.7 % (0.0-2.0); Eosinophils # (auto) 0.2 10 ^3/uL (0-0.8); Eosinophils % (auto) 3.4 % (0.0-7.0); Hematocrit 27.2 % (41.0-53.0); Lymphocytes # (auto) 1.3 10 ^3/uL (0.4-5.4); Mean Corpuscular Hemoglobin 31.1 pg (28.0-32.0); Mean Corpuscular Hgb Conc. 33.2 g/dL (32.0-36.0); Mean Corpuscular Volume 93.6 fL (80.0-100.0); Monocytes # (auto) 0.4 10 ^3/uL (0-1.3); Monocytes % (auto) 6.7 % (0.0-12.0); Neutrophils # (auto) 4.6 10 ^3/uL (1.6-8.6); Neutrophils % (auto) 70.2 % (37.0-80.0); Nucleated Red Blood Cells % 0.1 %; Red Blood Cells 2.91 10^6/uL (4.5-5.90); White Blood Cell 6.6 10^3/uL (4.4-10.8)
[2022-01-22] MEDS: InsuLIN REG 1unit/0.01ml Soln (100units/ml) SC SCH ×4 (05:59→21:14)
[2022-01-22] MEDS: ACCU-CHEK COMFORT CURVE STRIP VI SCH ×4 (05:59→21:14)
[2022-01-22 06:12] LABS: Potassium 4.1 mmol/L (3.5-5.1)
[2022-01-22 06:21] LABS: Albumin 2.4 g/dL (3.4-5.0); BUN/Creatinine Ratio 15.6; Bilirubin, Total 0.3 mg/dL (0.2-1.0); Calcium 8.3 mg/dL (8.5-10.1)
[2022-01-22] MEDS: glipiZIDE 5 MG TAB PO SCH (10:50)
[2022-01-22] MEDS: METOPROLOL TARTRATE 25 MG TAB PO SCH ×2 (10:50→21:14)
[2022-01-22] MEDS: NITROGLYCERIN 0.2MG/HR TOPICAL PATCH TD SCH (10:50)
[2022-01-22] MEDS: ASPirin-EC 81 mg tab PO SCH (10:50)
[2022-01-22] MEDS: PANTOPRAZOLE 40 MG/10 ML VIAL INJ IV SCH (10:50)
[2022-01-22] MEDS: TAMSULOSIN HYDROCHLORIDE 0.4 MG CAP PO SCH (18:22)
[2022-01-22] MEDS: GABAPENTIN 300 MG CAP PO SCH (18:22)
[2022-01-22] MEDS: ACETAMINOPHEN 500 MG TAB PO PRN (20:02)
[2022-01-22] MEDS: ATORVASTATIN 20 MG TAB PO SCH (21:14)
[2022-01-22] MEDS: SODIUM CHLORIDE 0.9% 1,000 ML IV SCH (21:30)
[2022-01-22] MEDS: LABETALOL HCL 5 MG/ML 4ML SYRINGE IV PRN (22:43)
[2022-01-23] VITALS (8 sets, daily range): BP systolic 124–182; BP diastolic 66–92
[2022-01-23] MEDS: hydrALAZINE HCL 20 MG/ML VL IV PRN (02:21)
[2022-01-23] MEDS: SODIUM CHLOR 0.9% PF (SALINE LOCK) 10ML VIAL/SYR IV SCH (05:19)
[2022-01-23] MEDS: ACETAMINOPHEN 500 MG TAB PO PRN (05:19)
[2022-01-23] MEDS: hydrALAZINE HCL 25 MG TAB PO SCH (05:19)
[2022-01-23] MEDS: ACCU-CHEK COMFORT CURVE STRIP VI SCH ×2 (06:14→10:55)
[2022-01-23 06:24] LABS: Basophils # (auto) 0.1 10 ^3/uL (0-0.2); Eosinophils # (auto) 0.3 10 ^3/uL (0-0.8); Hematocrit 25.8 % (41.0-53.0); Hemoglobin 9.1 g/dL (13.5-17.5); Lymphocytes # (auto) 1.2 10 ^3/uL (0.4-5.4); Lymphocytes % (auto) 19.1 % (10.0-50.0); Mean Corpuscular Hemoglobin 32.7 pg (28.0-32.0); Mean Corpuscular Hgb Conc. 35.1 g/dL (32.0-36.0); Mean Corpuscular Volume 93.3 fL (80.0-100.0); Monocytes # (auto) 0.3 10 ^3/uL (0-1.3); Monocytes % (auto) 5.6 % (0.0-12.0); Neutrophils # (auto) 4.2 10 ^3/uL (1.6-8.6); Neutrophils % (auto) 69.3 % (37.0-80.0); Red Blood Cells 2.77 10^6/uL (4.5-5.90); White Blood Cell 6.1 10^3/uL (4.4-10.8)
[2022-01-23] MEDS: InsuLIN REG 1unit/0.01ml Soln (100units/ml) SC SCH ×2 (06:39→10:55)
[2022-01-23 06:47] LABS: Potassium 3.7 mmol/L (3.5-5.1)
[2022-01-23 07:03] LABS: BUN/Creatinine Ratio 16.4; Calcium 8.3 mg/dL (8.5-10.1)
[2022-01-23 07:24] LABS: INR 1.1 (0.9-1.15); Partial Thromboplastin Time 26.3 sec (23.6-33.0)
[2022-01-23] MEDS ORDERED: VANCOMYCIN HCL 1000 MG VL ONE ×2 (07:41→07:52)
[2022-01-23] MEDS ORDERED: fentaNYL CITRATE 100 MCG/2 ML VL ONE (07:41)
[2022-01-23] MEDS ORDERED: MIDAZOLAM HCL 2MG/2ML 2ml VIAL (1mg/ml) ONE (07:42)
[2022-01-23] MEDS ORDERED: VANCOMYCIN 1GM/250ML 250 ML IV ONE (07:42)
[2022-01-23] MEDS ORDERED: LIDOCAINE 2%HCL (LOCAL ANESTH.) INJ 10ml MDV ONE ×3 (07:43→08:56)
[2022-01-23] MEDS ORDERED: ceFAZolin 1GM VL ONE (08:06)
[2022-01-23] MEDS ORDERED: IODIXANOL 320MG/ML 100ML BTL IV ONE (08:49)
[2022-01-23] MEDS: ASPirin-EC 81 mg tab PO SCH (10:00)
[2022-01-23] MEDS: METOPROLOL TARTRATE 25 MG TAB PO SCH (10:00)
[2022-01-23] MEDS: glipiZIDE 5 MG TAB PO SCH (10:00)
[2022-01-23] MEDS: NITROGLYCERIN 0.2MG/HR TOPICAL PATCH TD SCH (10:00)
[2022-01-23] MEDS: SODIUM CHLORIDE 0.9% 1,000 ML IV SCH (10:20)
[2022-01-23] MEDS: PANTOPRAZOLE 40 MG/10 ML VIAL INJ IV SCH (10:55)
[2022-01-23] MEDS ORDERED: DOXYCYCLINE 100 MG TAB/CAP PO SCH (13:17)
[2022-01-23] MEDS ORDERED: DOXY-346 PO (13:21)
== END 2022-01-23 14:35 | disposition home health service (06) | DRG 179 ==
LOC: ER 10:08 → TELE 12:20 → TELE-WESTW 15:05 → ICU WEST 18:25 → TELE-WESTW 01-16 23:14 → DOU IN ICU 01-21 14:50
PROVIDERS: ADMIT Internal Medicine; ATTEND Internal Medicine Pulmonary Disease
PROC: 5A12012 Performance of Cardiac Output, Single, Manual (ICD-10-PCS; 2022-01-11)
PROC: 5A1945Z Respiratory Ventilation, 24-96 Consecutive Hours (ICD-10-PCS; 2022-01-11)
PROC: 0BH17EZ Insertion of Endotracheal Airway into Trachea, Via Natural or Artificial Opening (ICD-10-PCS; 2022-01-11)
PROC: 0W993ZZ Drainage of Right Pleural Cavity, Percutaneous Approach (ICD-10-PCS; 2022-01-12)
PROC: 0W9B3ZZ Drainage of Left Pleural Cavity, Percutaneous Approach (ICD-10-PCS; 2022-01-14)
PROC: 4A023N7 Measurement of Cardiac Sampling and Pressure, Left Heart, Percutaneous Approach (ICD-10-PCS; 2022-01-19)
PROC: B211YZZ Fluoroscopy of Multiple Coronary Arteries using Other Contrast (ICD-10-PCS; 2022-01-19)
PROC: B215YZZ Fluoroscopy of Left Heart using Other Contrast (ICD-10-PCS; 2022-01-19)
PROC: 4A033BC Measurement of Arterial Pressure, Coronary, Percutaneous Approach (ICD-10-PCS; 2022-01-19)
PROC: 02HK3KZ Insertion of Defibrillator Lead into Right Ventricle, Percutaneous Approach (ICD-10-PCS; principal; 2022-01-23)
PROC: 0JH608Z Insertion of Defibrillator Generator into Chest Subcutaneous Tissue and Fascia, Open Approach (ICD-10-PCS; 2022-01-23)
DX: I21.4 Non-ST elevation (NSTEMI) myocardial infarction (principal); I46.9 Cardiac arrest, cause unspecified; N17.0 Acute kidney failure with tubular necrosis; I50.33 Acute on chronic diastolic (congestive) heart failure; J96.02 Acute respiratory failure with hypercapnia; J96.01 Acute respiratory failure with hypoxia; J15.6 Pneumonia due to other Gram-negative bacteria; E11.319 Type 2 diabetes mellitus with unspecified diabetic retinopathy without macular edema; D63.1 Anemia in chronic kidney disease; I13.0 Hypertensive heart and chronic kidney disease with heart failure and stage 1 through stage 4 chronic kidney disease, or unspecified chronic kidney disease; E11.51 Type 2 diabetes mellitus with diabetic peripheral angiopathy without gangrene; N18.30 Chronic kidney disease, stage 3 unspecified; R00.1 Bradycardia, unspecified; K80.20 Calculus of gallbladder without cholecystitis without obstruction; K40.20 Bilateral inguinal hernia, without obstruction or gangrene, not specified as recurrent; I27.20 Pulmonary hypertension, unspecified; N20.0 Calculus of kidney; N40.0 Benign prostatic hyperplasia without lower urinary tract symptoms; H54.7 Unspecified visual loss; I16.0 Hypertensive urgency; Z20.822 Contact with and (suspected) exposure to COVID-19; E11.22 Type 2 diabetes mellitus with diabetic chronic kidney disease; K59.00 Constipation, unspecified; E78.5 Hyperlipidemia, unspecified; E87.5 Hyperkalemia; I42.8 Other cardiomyopathies; E87.3 Alkalosis; E87.6 Hypokalemia; E66.9 Obesity, unspecified; Z68.31 Body mass index [BMI] 31.0-31.9, adult; Z79.899 Other long term (current) drug therapy; Z82.49 Family history of ischemic heart disease and other diseases of the circulatory system; Z86.16 Personal history of COVID-19; Z83.3 Family history of diabetes mellitus; Z86.73 Personal history of transient ischemic attack (TIA), and cerebral infarction without residual deficits; Z87.11 Personal history of peptic ulcer disease; Z87.442 Personal history of urinary calculi
CPT/HCPCS: 33249; 36415; 36600; 70450; 71045; 74176; 76604; 76705; 76942; 80048; 80053; 80061; 80202; 80307; 81001; 82040; 82140; 82306; 82550; 82570; 82805; 82962; 83615; 83690; 83735; 83880; 83970; 83986; 84100; 84154; 84156; 84300; 84478; 84484; 85025; 85610; 85652; 85730; 86704; 86706; 86708; 86803; 86850; 86900; 86901; 87070; 87081; 87205; 87340; 89051; 92610; 92950; 93005; 93306; 93458; 93571; 93886; 93975; 94003; 96374; 96375; 97110; 97116; 97163; 97530; 99152; 99153; A4618; C9113; G0378; J0330; J0690; J1815; J2001; J2250; J2405; J2543; J2704; J3490; P9047; Q9967